=== PATIENT | female | born 1995 | race Caucasian/White ===

== ENCOUNTER 2019-09-06 14:48 | Emergency (ER) | payer OTHER ==
[~2019-09-06] VITALS: Ht 157.5 cm; Wt 93.3 kg
[2019-09-06 15:45] LABS: BASO % 0.3 % (0.0-1.0); EOS # 0.1 10^3/uL (0.0-0.5); EOS % 0.8 % (0.0-3.0); HEMATOCRIT 37.9 % (36.0-47.0); HEMOGLOBIN 12.5 g/dl (12.0-15.5); LYMPH # 2.7 10^3/uL (1.5-5.0); LYMPH % 27.5 % (24.0-44.0); MEAN CORPUSCULAR VOLUME 91.1 fl (80.0-96.0); MONO # 0.4 10^3/uL (0.0-0.8); NEUTROPHILS # 6.5 10^3/uL (1.5-8.5); PLATELET COUNT, AUTOMATED 248 10^3/uL (150-450); RED BLOOD COUNT 4.16 10^6/uL (4.00-5.40); WHITE BLOOD COUNT 9.8 10^3/uL (4.0-10.0)
[2019-09-06 16:10] LABS: BLOOD UREA NITROGEN 10 MG/DL (7-18); CALCIUM LEVEL 9.1 MG/DL (8.5-10.1); CARBON DIOXIDE LEVEL 25 MEQ/L (21-32); CHLORIDE LEVEL 106 MEQ/L (98-107); GLOMERULAR FILTRATION RATE > 60.0 (>60); GLUCOSE, FASTING 104 MG/DL (70-100); POTASSIUM SERUM 3.6 MEQ/L (3.5-5.1); SODIUM LEVEL 138 MEQ/L (136-145)
[2019-09-06] MEDS ORDERED: DULO1CAP6 (17:03)
[2019-09-06] MEDS ORDERED: PROAAER10 (17:03)
[2019-09-06] MEDS ORDERED: XULA1DIS (17:03)
[2019-09-06 17:06] LABS: HCG, SERUM QUALITATIVE POSITIVE (NEGATIVE)
[2019-09-06 19:05] LABS: HCG, SERUM QUANTITATIVE 8531 MIU/ML
[2019-09-06 19:48] LABS: CHLAMYDIA DNA AMPLIFICATION NEGATIVE (NEGATIVE); GC DNA AMPLIFICATION NEGATIVE (NEGATIVE)
--- NOTE | 2019-09-06 20:15 | REPVR ---
PROCEDURE INFORMATION: Exam: US Duplex Artery and Vein of the Abdominal and/or Reproductive Organs. Complete Ovaries Exam date and time: 09/06/2019 6:52 PM Age: 24 years old Clinical indication: Lmp or gestational age (in weeks): Unknown; Antepartum complications; Bleeding; ; Additional info: Positive test, vag bleeding TECHNIQUE: Imaging protocol: Real-time duplex ultrasound scan of the arterial and venous flow with color Doppler flow and spectral waveform analysis with image documentation. Complete duplex exam focused on the ovaries. Duplex exam was added to evaluate for torsion and other vascular conditions. COMPARISON: No relevant prior studies available. FINDINGS: Right adnexa: Right ovary: Normal arterial waveform. Venous waveform not obtained. No evidence of torsion. Left adnexa: Left ovary: Normal arterial waveform. Venous waveform not obtained. No evidence of torsion. IMPRESSION: No evidence of ovarian torsion. PROCEDURE INFORMATION: Exam: US First Trimester, Transabdominal and US , Transvaginal Exam date and time: 09/06/2019 6:52 PM Age: 24 years old Clinical indication: Lmp or gestational age (in weeks): Unknown; Antepartum complications; Bleeding; ; Additional info: Positive test, vag bleeding TECHNIQUE: Imaging protocol: Real-time transabdominal obstetrical ultrasound of the maternal pelvis and a first trimester , less than 14 weeks 0 days, with image documentation. Transvaginal imaging was used for better evaluation of the fetus and adnexa. COMPARISON: No relevant prior studies available. FINDINGS: GESTATION: Gestation: No normal and intrauterine or ectopic seen. Heterogeneous, echogenic material in the endometrial canal with no associated blood flow. No vascular retained products of conception. Heart rate: Not applicable. Placenta: Not applicable. Amniotic fluid: Not applicable. BIOMETRY: Estimated gestational age: Not applicable. MATERNAL: Uterus: See Gestation Finding. Cervix: Unremarkable. Right adnexa: No right adnexal mass. Unremarkable right ovary Left adnexa: No left adnexal mass. Left ovarian follicle noted. Intraperitoneal: No intraperitoneal free fluid. IMPRESSION: No intrauterine or ectopic seen. Heterogeneous, echogenic material in the endometrial canal could represent blood products. A subendometrial fibroid could also potentially have this appearance. Differential possibilities include early intrauterine with fibroid uterus, failed intrauterine with endometrial canal blood products, or nonvisualized ectopic . Recommend close clinical followup, correlation with serial serum beta-hCG, and followup ultrasound. Electronically signed by: Mingo Gates On 09/06/2019 20:15:33 PM
[2019-09-06 20:49] VITALS: BP 138/71
== END 2019-09-06 20:50 | disposition home or self-care (01) ==
LOC: M ED 14:48
DX: O20.0 Threatened abortion (principal); F17.210 Nicotine dependence, cigarettes, uncomplicated; Z79.51 Long term (current) use of inhaled steroids; O99.330 Smoking (tobacco) complicating pregnancy, unspecified trimester; Z3A.00 Weeks of gestation of pregnancy not specified

== ENCOUNTER 2019-09-08 10:38 | Day surgery (SDC) | payer OTHER ==
[~2019-09-08] VITALS: Ht 157.5 cm; Wt 90.9 kg
[~2019-09-08 10:38] MED LIST: DULO1CAP6; PROAAER10; XULA1DIS
[2019-09-08] MEDS ORDERED: TUMS500C (11:09)
[2019-09-08 11:26] LABS: BASO % 0.4 % (0.0-1.0); EOS # 0.2 10^3/uL (0.0-0.5); EOS % 1.9 % (0.0-3.0); HEMOGLOBIN 12.8 g/dl (12.0-15.5); LYMPH # 2.2 10^3/uL (1.5-5.0); MEAN CORPUSCULAR HEMOGLOBIN 30.3 pg (27.0-33.0); MEAN CORPUSCULAR HGB CONC 33.7 g/dl (32.0-36.5); MONO # 0.4 10^3/uL (0.0-0.8); MONO % 4.6 % (0.0-5.0); NEUTROPHILS # 6.4 10^3/uL (1.5-8.5); NEUTROPHILS % 68.8 % (36.0-66.0); PLATELET COUNT, AUTOMATED 249 10^3/uL (150-450); RED BLOOD COUNT 4.22 10^6/uL (4.00-5.40); WHITE BLOOD COUNT 9.3 10^3/uL (4.0-10.0)
[2019-09-08 12:23] LABS: BLOOD UREA NITROGEN 11 MG/DL (7-18); CALCIUM LEVEL 8.8 MG/DL (8.5-10.1); CARBON DIOXIDE LEVEL 21 MEQ/L (21-32); CHLORIDE LEVEL 107 MEQ/L (98-107); CREATININE FOR GFR 0.81 MG/DL (0.55-1.30); GLOMERULAR FILTRATION RATE > 60.0 (>60); GLUCOSE, FASTING 90 MG/DL (70-100); POTASSIUM SERUM 3.8 MEQ/L (3.5-5.1); SODIUM LEVEL 137 MEQ/L (136-145)
--- NOTE | 2019-09-08 13:53 | REP ---
EMERGENCY FIRST TRIMESTER OBSTETRIC SONOGRAPHY: HISTORY: Vaginal bleeding in early . Comparison study to September 06, 2019. FINDINGS: Transabdominal and transvaginal scanning are performed. Uterine dimensions are 9.3 x 5.1 x 6.2 cm. Endometrium is heterogeneously thickened measuring 3.0 cm. No gestational sac is seen. No free fluid is noted. Normal ovaries seen measuring 2.6 x 1.5 x 1.4 cm. Doppler flow is present in the right ovary with resistive index 0.58. The left ovary measures 4.0 x 1.7 x 3.1 cm. It contains a hypoechoic cystic structure 2.3 x 1.5 x 1.8 cm. Doppler flow is present in the left ovary with resistive index 0.51. IMPRESSION: Heterogeneous thickening of the endometrium. This is similar to the prior study. Gestational trophoblastic disease may be a consideration. Recommend followup. No intrauterine gestation, free fluid, or adnexal mass lesion is appreciated. 2.3 cm hypoechoic cyst in the left ovary. Electronically Signed by Yehuda Gomez MD 09/08/2019 04:10 P
[2019-09-08] MEDS ORDERED: LR 1,000 ML IV ONE (14:00)
[2019-09-08] MEDS ORDERED: LIDOCAINE 2% INJ 100 MG/5 ML SDV (FOR ANES.) As Ordered ONE (14:25)
[2019-09-08] MEDS ORDERED: PROPOFOL 200 MG/20 ML VIAL As Ordered ONE ×2 (14:25→14:54)
[2019-09-08] MEDS ORDERED: ONDANSETRON 4MG/2ML VIAL (J2405) As Ordered ONE (14:26)
[2019-09-08] MEDS ORDERED: fentaNYL 100 MCG/2 ML INJECTION (J3010) As Ordered ONE (14:26)
[2019-09-08] MEDS ORDERED: dexameTHASONE 4 MG/ML 1ML VIAL (J1100) As Ordered ONE (14:26)
[2019-09-08] MEDS ORDERED: MIDAZOLAM INJ 2 MG/2 ML VIAL (J2250) As Ordered ONE (14:26)
[2019-09-08] MEDS ORDERED: ACETAMINOPHEN 650 MG SUPP As Ordered ONE (14:45)
[2019-09-08] MEDS ORDERED: METOCLOPRAMIDE INJ 10MG/2ML VIAL (J2765) As Ordered ONE (15:04)
[2019-09-08] MEDS ORDERED: KETOROLAC 60 MG/2 ML VIAL (J1885) As Ordered ONE (15:04)
[2019-09-08] MEDS ORDERED: OXYTOCIN INJ 10 UNITS/ML VIAL (J2590) As Ordered ONE ×2 (15:07→15:08)
[2019-09-08] MEDS ORDERED: PHENYTOIN 100 MG/2 ML VIAL (J1165) As Ordered ONE (15:07)
[2019-09-08] MEDS ORDERED: PERCOCET 5MG/325MG TAB As Ordered ONE (15:35)
[2019-09-08] MEDS ORDERED: PERCOCET 5MG/325MG TAB PO PRN (15:45)
[2019-09-08] MEDS ORDERED: METOCLOPRAMIDE INJ 10MG/2ML VIAL (J2765) IV PRN (15:45)
[2019-09-08] MEDS ORDERED: LR 1,000 ML IV SCH (15:45)
[2019-09-08] MEDS ORDERED: ONDANSETRON 4MG/2ML VIAL (J2405) IV PRN (15:45)
[2019-09-08] MEDS ORDERED: MEPERIDINE INJ 25 MG/ML VIAL (J2175) IV PRN (15:45)
[2019-09-08] MEDS ORDERED: fentaNYL 100 MCG/2 ML INJECTION (J3010) IV PRN (15:45)
[2019-09-08 16:07] VITALS: BP 119/83
[2019-09-08 16:39] VITALS: BP 122/81
[2019-09-08] MEDS ORDERED: KETOROLAC 30 MG/ML VIAL (J1885) IV PRN (20:00)
--- NOTE | 2019-09-10 13:58 | RO ---
DATE OF PROCEDURE: 09/08/2019 PREOPERATIVE DIAGNOSIS: Retained products of conception. POSTOPERATIVE DIAGNOSIS: Retained products of conception. OPERATION PROPOSED: Suction curettage. OPERATION PERFORMED: Suction curettage. SURGEON: Dr. Anselmo Singer [employer] OPERATOR: ANESTHESIA: General. ESTIMATED BLOOD LOSS: 20 mL DESCRIPTION OF PROCEDURE: After adequate time-out, prepped and draped in lithotomy position, bladder was drained for 30 mL of clear urine. Weighted speculum in vagina. Single-tooth tenaculum on the anterior lip of the cervix. Uterus sounded to a depth of 12 cm, was already dilated to a Lillie 10. Curved suction curette applied. Curettage until the cavity is smooth. Uterus placed in anatomical position well contracted under Pitocin. The patient is Rh positive and does not require RhoGAM. She was sent to recovery in good condition.
== END 2019-09-08 18:00 | disposition home or self-care (01) ==
LOC: M ED 10:38 → M SDC 13:02 → M MS5PR 15:50 → M SDC 18:00
PROVIDERS: ATTEND Obstetrics & Gynecology
DX: O73.1 Retained portions of placenta and membranes, without hemorrhage (principal); N83.202 Unspecified ovarian cyst, left side; F32.9 Major depressive disorder, single episode, unspecified; F41.9 Anxiety disorder, unspecified; J45.909 Unspecified asthma, uncomplicated; F17.200 Nicotine dependence, unspecified, uncomplicated
CPT/HCPCS: 59812; 76801; 76817; 80048; 84702; 85025; 88305; 93976; 99284; J1100; J1885; J2250; J2405; J2590; J2765; J3010